=== PATIENT | female | born 1975 | race American Indian/Alaskan Native ===

== ENCOUNTER 2018-07-15 10:25 | Outpatient (CLI) | payer BC ==
--- NOTE | 2018-07-15 11:43 | Cat Scan Report ---
CT CHEST WITHOUT CONTRAST: HISTORY: Pulmonary nodule. COMPARISON: none. TECHNIQUE: Helical CT in 1.25mm intervals without IV contrast. Sagittal and coronal reformatted images. FINDINGS: Thyroid gland: Normal. Tracheobronchial tree: Normal. Esophagus: Normal. Heart: Normal. Pericardium: Normal. Mediastinum: There are a few scattered calcified lymph nodes in the precarinal chain, subcarinal chain and left hilar chain. Lung Engle: Scattered small calcified granulomas are noted in both lungs. No suspicious soft tissue nodule or mass. The lung parenchyma is within normal limits. Pleural Spaces: Normal. Musculoskeletal: Normal. IMPRESSION: Chronic granulomatous disease. No suspicious pulmonary nodule.
== END 2018-07-15 10:26 | disposition home or self-care (01) ==
LOC: CT 10:25
PROVIDERS: ATTEND Specialist
DX: L92.9 Granulomatous disorder of the skin and subcutaneous tissue, unspecified (principal)
CPT/HCPCS: 71250